=== PATIENT | female | born 1950 | race Caucasian/White ===

== ENCOUNTER 2024-09-16 10:01 | Outpatient (CLI) | payer MEDICARE, SELFPAY ==
--- OUTSIDE RECORDS SUMMARY | 2024-09-16 10:12 | XMS_ITS ---
Author Name Auto Generated, Auto Generated Organization [facility] Address [address] [place] [address] Phone [phone] Care Team Providers Care Manager Parking Name Role Phone Dominic Thomas Unavailable [phone] Michael Rosa Unavailable Functional Status No Results Mental Status No Results Allergies and Intolerances Name Onset Date Reaction Severity Valium (Allergy) TueNov 05 18:09:00 EDT 2022 Antihistamine (Allergy) TueNov 05 18:09:00 EDT 2022 ibuprofen (Allergy) TueNov 05 18:09:00 EDT 2022 barium sulfate (Allergy) TueNov 05 18:09:00 EDT 2022 aspirin (Allergy) TueNov 05 18:09:00 EDT 2022 Encounters Program Name Primary Diagnosis Admission Date/Time Dis charge Date/Time null Alzheimer's disease, unspecified TueFeb 23 19:00:00 EST 2022 Medications Medication Directions Start Date End Date lactulose 10 gram/15 mL (15 mL) oral solution 30 Milliliter Oral PRN 1 Time Daily Indication: constipation if no BM within 72 hrs Haley Apr 14 00:00:00 EST 2023May 03 00:00:00 EST 2023 magnesium hydroxide 400 mg/5 mL oral suspension 30 Milliliter Oral PRN 1 Time Daily Indication: constipation if no results from lactulose within 2 4hrs, Haley Apr 14 00:00:00 EST 2023May 03 00:00:00 EST 2023 Dulcolax (bisacodyl) 10 mg rectal suppository 1 Suppository Rectal PRN 1 Time Daily Indication: constipation if no results within 12 hrs of mom TueApr 14 00:00:00 EST 2023May 03 00:00:00 EST 2023 Fleet Enema 19 gram-7 gram/118 mL 118 Milliliter Rectal PRN 1 Time Daily Indication: constipation if no results from dulcolax sp within 2 4hrs TueApr 14 00:00:00 EST 2023May 03 00:00:00 EST 2023 acetaminophen 500 mg tablet 1 tablet TABLET Oral PRN Every 6 Hours Indication: pain or fever TueDec 23 00:00:00 ED2022May 03 00:00:00 EST 2023 diclofenac 1 % topical gel 1 unit GEL (G PRAVEENA) Topical PRN 2 Times Daily Indication: may apply 2-3 times a day, for pain TueDec 23 00:00:00 2022May 03 00:00:00 EST 2023 licorice root (Glycyrrhiza glabra) 450 mg capsule 1 tablet CAPSULE Oral 1 Time Daily Indication: 1 tab in am prior to breakfast to help with digestion TueDec 23 00:00:00 ED2022May 03 00:00:00 EST 2023 ketoconazole 2 % shampoo 1 unit SHAMPOO Topical 2 Times Weekly Indication: 1-2 times weekly, leave on hair for 10 minutes and then rinse for dandruff TueDec 15 00:00:00 2022May 03 00:00:00 EST 2023 Preparation H 0.25 %-14 %-74.9 % ointment 1 unit OINTMENT WITH APPLICATOR Rectal PRN 2 Times Daily Indication: for hemorroids TueDec 15 00:00:00 2022May 03 00:00:00 EST 2023 Skin Protectant A and D topical ointment 1 unit OINTMENT (GRAM) Topical PRN 2 Times Daily Indication: to narciso area as needed for irritation TueDec 15 00:00:00 2022May 03 00:00:00 EST 2023 TylenoL 325 mg tablet 1-2 tabs TABLET Or al PRN Every 6 Hours Indication: for pain TueDec 15 00:00:00 ED2022Dec 23 21:51:00 EDT 2022 Tums 200 mg calcium (500 mg) chewable tablet 2 tabs TABLET,CHEWABLE Oral Hour Of Sleep Indication: for gas TueNov 05:00:00 ED2022May 03 00:00:00 EST 2023 multivitamin tablet 1 tablet TABLET Oral 4 Times Weekly Indication: supplement TueNov 05:00:00 EDT 2022May 03 00:00:00 EST 2023 Vitamin D3 50 mcg (2,000 unit) tablet 1 tablet TABLET Oral 1 Time Weekly Indication: supplement TueNov 05:00: ED2022May 03 00:00:00 EST 2023 morphine concentrate 100 mg/5 mL (20 mg/mL) oral solution 0.25ml (5mg) SOLUTION, ORAL Oral PRN Every 2 Hours Indication: for pain or dyspnea, may increase to 0.5ml every 2 hours prn pain or dyspnea for continued symptoms, this med was brought from [place] not [facility] symptom kit TueNov 05:00:00 EDT 2022Dec 27 14:50:00 EDT 2022 haloperidol lactate 2 mg/mL oral concentrate 0.5ml CONCENTRATE, ORAL Oral PRN Every 4 Hours Indication: nausea or vomiting, this med was brought from [place] as their symptom kit not [facility] symptom kit TueNov 05:00:00 EDT 2022Dec 27 14:50:00 EDT 2022 LORazepam 2 mg/mL oral concentrate 0.25ml CONCENTRATE, ORAL Oral PRN Every 6 Hours Indication: anxiety or shortness of air, this was brought from [place] symptom kit, not psychiatric symptom kit TueNov 05:00:00 EDT 2022Dec 27 14:50:00 EDT 2022 Levsin 0.125 mg tablet 1 tab TABLET Oral PRN Every 4 Hours Indication: for secretions TueNov 05:00:00 EDT 2022Dec 27 14:50:00 EDT 2022 Treatment Plan Problems No Known Problems Social History Social History Observation Description Date Smoking Status Never smoked TueFeb 24 00:00 :00 EST 2022 Sex Female Sat Mar 13 00:00 :00 EST 1949 Reason for Referral
[2024-09-16 10:25] LABS: Microscopic, Urine URINE MICROSCOPIC (MICROSCOPIC)
[2024-09-16 10:36] LABS: Appearance,Urine TURBID (Clear); Bilirubin,Urine Negative (Negative); Blood, Urine 1+ (Negative); Color,Urine YELLOW (Yellow); Glucose,Urine (UA) Negative (Negative); Ketones,Urine Negative (Negative); Leukocyte Esterase,Urine Negative (Negative); Nitrate,Urine POSITIVE (Negative); PH,Urine 5.5 (5.0-8.5); Protein,Urine Negative (Negative); Specific Gravity, Urine 1.025 (1.005-1.030); Urobilinogen,Urine 0.2 EU/dl (0.2)
[2024-09-16 10:49] LABS: Bacteria,Urine 4+ /lpf; Calcium Oxalate Crystals,Urine 1+ /lpf; RBC,Urine Occasional #/hpf (0-3); Squamous Epithelial Cell,Urine Occasional #/hpf (0-5)
== END 2024-09-16 23:59 | disposition home or self-care (01) ==
LOC: LAB 10:11
PROVIDERS: PCP Family Medicine Hospice and Palliative Medicine; Visit Provider Family Medicine Hospice and Palliative Medicine
DX: C50.012 Malignant neoplasm of nipple and areola, left female breast (principal); G30.9 Alzheimer's disease, unspecified; F02.80 Dementia in other diseases classified elsewhere, unspecified severity, without behavioral disturbance, psychotic disturbance, mood disturbance, and anxiety; M79.7 Fibromyalgia
CPT/HCPCS: 81001; 87086; 87088; 87186

== ENCOUNTER 2024-09-21 08:36 | Emergency (ER) | payer MEDICARE, SELFPAY ==
[2024-09-21] VITALS (7 sets, daily range): BP systolic 140–190; BP diastolic 74–95; PULSE 78–91; RESP 14–18; TEMP 36.8–37; O2SAT 95–100; BMI 20.7
--- OUTSIDE RECORDS SUMMARY | 2024-09-21 08:38 | XMS_ITS ---
Author Name Auto Generated, Auto Generated Organization [facility] Address [address] [place] [address] Phone [phone] Care Team Providers Care Endocrinology Specialist Name Role Phone Dominic Thomas Unavailable [phone] Michael Rosa Unavailable [phone] Functional Status No Results Mental Status No [...] Topical PRN 2 Times Daily Indication: to anrciso area as needed for irritation TueDec 15 [...] continued symptoms, this med was brought from [place] not [facility] symptom kit TueNov 05:00:00 EDT 2022Dec 27 14:50:00 EDT 2022 haloperidol lactate 2 mg/mL oral concentrate 0.5ml CONCENTRATE, ORAL Oral PRN Every 4 Hours Indication: nausea or vomiting, this med was brought from [place] as their symptom kit not [facility] symptom kit TueNov 05:00:00 EDT 2022Dec 27 14:50:00 EDT 2022 LORazepam 2 mg/mL oral concentrate 0.25ml CONCENTRATE, ORAL Oral PRN Every 6 Hours Indication: anxiety or shortness of air, this was brought from [place] symptom kit, not [facility] symptom kit TueNov 05:00:00 EDT 2022Dec 27 [...]
--- NOTE | 2024-09-21 08:44 | XR_ITS ---
PROCEDURE INFORMATION: Exam: XR Right Femur Exam date and time: 09/21/2024 9:27 AM Age: 74 years old Clinical indication: Injury or trauma; Fall; Blunt trauma; Thigh or upper leg; Right; Additional info: Fall, pain TECHNIQUE: Imaging protocol: Radiologic exam of the right femur. Views: 2 views. COMPARISON: CT ABDOMEN PELVIS WO CON 09/21/2024 9:23 AM FINDINGS: Bones/joints: Osteopenia. No evidence of acute fracture or dislocation. Pelvic osseous metastases demonstrated on concurrent CT abdomen and pelvis not well delineated by radiograph. Soft tissues: Unremarkable. IMPRESSION: Osteopenia. No evidence of acute fracture or dislocation.
--- NOTE | 2024-09-21 08:44 | CT_ITS ---
PROCEDURE INFORMATION: Exam: CT Cervical Spine Without Contrast Exam date and time: 09/21/2024 9:15 AM Age: 74 years old Clinical indication: Injury or trauma; Additional info: Fall, pain. Provided history of breast cancer. TECHNIQUE: Imaging protocol: Computed tomography of the cervical spine without contrast. Radiation optimization: All CT scans at this facility use at least one of these dose optimization techniques: automated exposure control; mA and/or kV adjustment per patient size (includes targeted exams where dose is matched to clinical indication); or iterative reconstruction. COMPARISON: 1. CT CHEST WO CON 09/21/2024 9:[address] HEAD/BRAIN WO CON 09/21/2024 9:13 AM FINDINGS: Bones: Osteopenia. Osseous metastases with innumerable vertebral sclerotic foci and small sclerotic focus in the medial left clavicle. No evidence of acute fracture or malalignment. Multilevel degenerative change with disc space narrowing, facet arthropathy, and uncovertebral hypertrophy. Partial osseous fusion of the C5-C6 vertebral bodies and fusion of the posterior elements on the right. No severe spinal canal or neural foraminal stenosis. Lungs: Lung apices are unremarkable. Vasculature: Carotid calcified atherosclerosis. Soft tissues: Unremarkable. IMPRESSION: No CT evidence of acute cervical spine traumatic injury. Osseous metastases as above.
--- NOTE | 2024-09-21 08:44 | XR_ITS ---
PROCEDURE INFORMATION: Exam: XR Right Ankle Exam date and time: 09/21/2024 9:27 AM Age: 74 years old Clinical indication: Injury or trauma; Fall; Blunt trauma; Ankle; Right; Additional info: Fall, pain TECHNIQUE: Imaging protocol: Radiologic exam of the right ankle. Views: 3 or more views. COMPARISON: No relevant prior studies available. FINDINGS: Bones/joints: Osteopenia. No evidence of acute fracture or dislocation. Soft tissues: Lower calf soft tissue edema. IMPRESSION: No acute osseous abnormality.
--- NOTE | 2024-09-21 08:44 | XR_ITS ---
PROCEDURE INFORMATION: Exam: XR Left Shoulder Exam date and time: 09/21/2024 9:27 AM Age: 74 years old Clinical indication: Injury or trauma; Fall; Blunt trauma (contusions or hematomas); Shoulder; Left TECHNIQUE: Imaging protocol: Radiologic exam of the left shoulder. Views: 2 or more views. COMPARISON: CT CHEST WO CON 09/21/2024 9:21 AM FINDINGS: Bones/joints: No acute fracture or dislocation. Sclerotic/lytic glenoid metastases as seen on same day CT chest. Soft tissues: Unremarkable. IMPRESSION: No acute fracture or dislocation. Sclerotic/lytic glenoid metastases.
--- NOTE | 2024-09-21 08:44 | XR_ITS ---
PROCEDURE INFORMATION: Exam: XR Left Femur Exam date and time: 09/21/2024 9:27 AM Age: 74 years old Clinical indication: Injury or trauma; Fall; Blunt trauma; Thigh or upper leg; Left; Additional info: Fall, pain TECHNIQUE: Imaging protocol: Radiologic exam of the left femur. Views: 2 views. COMPARISON: CT ABDOMEN PELVIS WO CON 09/21/2024 9:23 AM FINDINGS: Bones/joints: Osteopenia. No evidence of acute fracture or dislocation. Osseous metastases demonstrated on concurrent CT abdomen and pelvis not well delineated by radiograph. Soft tissues: Unremarkable. IMPRESSION: Osteopenia. No evidence of acute fracture or dislocation. Osseous metastases demonstrated on concurrent CT abdomen and pelvis not well delineated by radiograph.
--- NOTE | 2024-09-21 08:44 | CT_ITS ---
PROCEDURE INFORMATION: Exam: CT Head Without Contrast Exam date and time: 09/21/2024 9:13 AM Age: 74 years old Clinical indication: Injury or trauma; Additional info: Fall L side pain TECHNIQUE: Imaging protocol: Computed tomography of the head without contrast. Radiation optimization: All CT scans at this facility use at least one of these dose optimization techniques: automated exposure control; mA and/or kV adjustment per patient size (includes targeted exams where dose is matched to clinical indication); or iterative reconstruction. COMPARISON: No relevant prior studies available. FINDINGS: Brain: No acute infarct, hemorrhage, mass, or mass effect. Moderate chronic white matter microvascular ischemic change. Moderate brain parenchymal atrophy with widening of the ventricles and sulci. Cerebral ventricles: See Brain finding. Paranasal sinuses: Clear. Mastoid air cells: Clear. Orbital cavities: Orbits are unremarkable. Sella is unremarkable. Bones: Unremarkable. Soft tissues: Unremarkable. IMPRESSION: 1. No acute intracranial abnormality. 2. Moderate brain parenchymal atrophy with widening of the ventricles and sulci.
--- NOTE | 2024-09-21 08:44 | CT_ITS ---
PROCEDURE INFORMATION: Exam: CT Abdomen And Pelvis Without Contrast Exam date and time: 09/21/2024 9:23 AM Age: 74 years old Clinical indication: Injury or trauma; Additional info: Fall, pain. Provided history of breast cancer. TECHNIQUE: Imaging protocol: Computed tomography of the abdomen and pelvis without contrast. Radiation optimization: All CT scans at this facility use at least one of these dose optimization techniques: automated exposure control; mA and/or kV adjustment per patient size (includes targeted exams where dose is matched to clinical indication); or iterative reconstruction. COMPARISON: CT CHEST WO CON 09/21/2024 9:21 AM FINDINGS: Limitations: Evaluation of visceral organs and vasculature and sensitivity for lymphadenopathy are limited in the absence of intravenous contrast. Diaphragm: Small hiatal hernia. Liver: Few subcentimeter hypodense lesions in the liver, too small to characterize. Gallbladder and biliary ducts: Cholelithiasis. No pericholecystic inflammatory changes. No ductal dilatation. Pancreas: Pancreas is unremarkable. No ductal dilatation. Spleen: No splenomegaly. Adrenal glands: No adrenal mass. Kidneys and ureters: Few small cortical hypodensities in the kidneys, too small to characterize. Questionable indeterminate cortical lesion at the interpolar right kidney versus lobulation. No hydronephrosis. No stones. Stomach and bowel: No evidence of bowel obstruction or acute bowel abnormality. Colonic diverticulosis without evidence of diverticulitis. Appendix: No evidence of appendicitis. Intraperitoneal space: No free air. No significant fluid collection. Vasculature: Scattered calcified aortoiliac atherosclerotic disease. No abdominal aortic aneurysm. Lymph nodes: No enlarged lymph nodes. Urinary bladder: Urinary bladder is unremarkable. Reproductive: Unremarkable as visualized. Bones/joints: No acute fracture identified. Findings compatible with osseous metastatic disease with innumerable sclerotic foci throughout the osseous structures. Right iliac lytic metastasis and partially imaged lytic metastases of the leftward aspect of T6 and left glenoid. Osteopenia. Soft tissues: Status post left mastectomy with fungating left anterior chest wall mass, see CT chest report. IMPRESSION: 1. Osseous metastases as above. 2. Colonic diverticulosis without evidence of diverticulitis. 3. Cholelithiasis. 4. Few small cortical hypodensities in the kidneys, too small to characterize. Questionable indeterminate cortical lesion at the interpolar right kidney versus lobulation. Recommend nonemergent renal ultrasound or comparison to prior imaging if available. 5. Few subcentimeter hypodensities in the liver too small to characterize. 6. Please see separate CT chest report for significant findings above the diaphragm. COMMENTS: Consistent with the [employer]'s Incidental Findings Committee white paper (J Am Jenn Radiol 2018): Any incidental renal lesion less than 1 cm or classified as too small to characterize, or any incidental cystic renal lesion characterized as simple-appearing, is likely benign. No follow-up imaging is recommended for these lesions per consensus recommendations based on imaging criteria.
--- NOTE | 2024-09-21 08:44 | XR_ITS ---
PROCEDURE INFORMATION: Exam: XR Left Ankle Exam date and time: 09/21/2024 9:27 AM Age: 74 years old Clinical indication: Injury or trauma; Fall; Blunt trauma; Ankle; Left; Additional info: Fall, pain TECHNIQUE: Imaging protocol: Radiologic exam of the left ankle. Views: 3 or more views. COMPARISON: No relevant prior studies available. FINDINGS: Bones/joints: Two views of the left foot. Osteopenia. Lateral deviation of the foot on AP view, possibly chronic deformity/positional. No acute fracture identified, although evaluation limited. Soft tissues: Lower calf soft tissue edema. IMPRESSION: Osteopenia. Lateral deviation of the foot on AP view, possibly chronic deformity/positional. No acute fracture identified, although evaluation limited. CT could be obtained as clinically indicated.
--- NOTE | 2024-09-21 08:44 | XR_ITS ---
PROCEDURE INFORMATION: Exam: XR Chest Exam date and time: 09/21/2024 9:27 AM Age: 74 years old Clinical indication: Injury or trauma; Fall; Blunt trauma (contusions or hematomas) TECHNIQUE: Imaging protocol: Radiologic exam of the chest. Views: 1 view. COMPARISON: CT CHEST WO CON 09/21/2024 9:21 AM FINDINGS: Lungs: Hypoaeration of the lung bases. Mild bibasilar opacities. There is a 4.5 cm density over the left lower chest which corresponds with fungating chest wall mass as demonstrated on same day CT chest. Pleural spaces: No pleural effusion. No pneumothorax. Heart/Mediastinum: Cardiomediastinal silhouette is normal. Bones/joints: Left glenoid sclerotic/lytic metastasis. No acute fracture identified. IMPRESSION: 1. Mild bibasilar opacities. There is a 4.5 cm density over the left lower chest which corresponds with fungating chest wall mass as demonstrated on same day CT chest. 2. Left glenoid sclerotic/lytic metastasis. No acute fracture identified.
--- NOTE | 2024-09-21 08:44 | CT_ITS ---
PROCEDURE INFORMATION: Exam: CT Chest Without Contrast; Diagnostic Exam date and time: 09/21/2024 9:21 AM Age: 74 years old Clinical indication: Injury or trauma; Additional info: Fall, L sided pain. Provided history of breast cancer. TECHNIQUE: Imaging protocol: Diagnostic computed tomography of the chest without contrast. Radiation optimization: All CT scans at this facility use at least one of these dose optimization techniques: automated exposure control; mA and/or kV adjustment per patient size (includes targeted exams where dose is matched to clinical indication); or iterative reconstruction. COMPARISON: CT CHEST WO CON 09/21/2024 9:21 AM FINDINGS: Lungs: Multiple nodules in the right middle lobe, largest measuring 1.1 cm. Subpleural right upper lobe 5 mm nodule. Left lower lobe 1 cm subpleural nodular opacity and ovoid medial LLL nodule measuring up to 6 mm. Non-specific ground-glass attenuation in the lower lungs may reflect atelectasis. Pleural spaces: No pneumothorax. No pleural effusion. Heart: Heart size is normal. No pericardial effusion. Lymph nodes: No enlarged mediastinal or hilar lymph nodes. Prominent upper normal left axillary and supraclavicular lymph nodes measuring up to 9 mm, short axis dimension. Vasculature: Limited evaluation without contrast. Mild calcified aortic atherosclerosis. No thoracic aortic aneurysm. Main pulmonary artery is normal caliber. Diaphragm: Small hiatal hernia. Bones/joints: Findings compatible with osseous metastases with innumerable sclerotic foci throughout the osseous structures, most extensively involving the vertebral bodies, sternum, and left scapula. Lytic lesion of the leftward aspect of T6. Lytic lesion of the left glenoid. No definite acute fracture identified. Nondisplaced rib fracture difficult to entirely exclude given osteopenia and metastases. Multilevel degenerative changes of the included spine. Osteopenia. Soft tissues: Status post left mastectomy. Irregular fungating soft tissue mass at the left anterior chest wall measuring 6.4 x 3.5 x 3.5 cm (TxAPxCC). IMPRESSION: 1. Status post left mastectomy. Irregular fungating soft tissue mass at the left anterior chest wall measuring 6.4 x 3.5 x 3.5 cm concerning for recurrent disease. 2. Bilateral pulmonary nodules as above, possible metastatic disease. 3. Diffuse osseous metastases as above. 4. Prominent upper normal left axillary and supraclavicular lymph nodes. 5. Other chronic and incidental findings as above. 6. Please see separate CT abdomen and pelvis report for findings below the diaphragm. The findings were verbally communicated via telephone conference with NATY CASSIDY at 10:54 AM EDT on 09/21/2024. The findings were acknowledged and understood.
--- NOTE | 2024-09-21 08:44 | XR_ITS ---
PROCEDURE INFORMATION: Exam: XR Pelvis Exam date and time: 09/21/2024 9:27 AM Age: 74 years old Clinical indication: Injury or trauma; Fall; Blunt trauma (contusions or hematomas); Bilateral; Pelvic region TECHNIQUE: Imaging protocol: Radiologic exam of the pelvis. Views: 1 or 2 view. COMPARISON: CT ABDOMEN PELVIS WO CON 09/21/2024 9:23 AM FINDINGS: Bones/joints: Osteopenia. No evidence of acute fracture or dislocation. Osseous metastases demonstrated on concurrent CT abdomen and pelvis not well delineated by radiograph. Soft tissues: Unremarkable. IMPRESSION: Osteopenia. No evidence of acute fracture or dislocation. Osseous metastases demonstrated on concurrent CT abdomen and pelvis not well delineated by radiograph.
--- NOTE | 2024-09-21 08:48 | [facility].EDGENADL ---
Discharge Plan Referrals Follow up/Referrals: Provider,Referral, MD [Referring, Medical] - See instructions Activity Restrictions/Add. Instructions Additional Instructions/Restrictions: At this time it was felt you are safe to be discharged home. If new or worsening symptoms please do not hesitate to return the emergency department. As discussed your known cancer has spread to multiple bones in your back, hips, spine, likely in your lungs. You will benefit from hospice evaluation to help your symptoms as your pain will likely progress. I am sorry that we found this today and wish you well in the rest of your cancer journey. Clinical Impressions Clinical Impression: Fall, Metastatic disease Print Language Print Language: Latvian Discharge ED Provider: Bashir Valenzeula General Adult HPI General Chief complaint: Fall Stated complaint: AMS, fell out of bed, recent UTI Time Seen by Provider: 09/21/24 08:40 History of Present Illness HPI narrative: Patient is a 74-year-old female with past medical history of breast cancer not undergoing current therapy that is eroding through her left chest wall, not on anticoagulants, [facility] [place] DNR/DNI who presents emergency department for evaluation of traumatic injury sustained in a fall. Patient rolled out of bed inadvertently onto her left side striking her shoulder left chest wall and head. No loss of consciousness. She is complaining of pain in those areas as well as her bilateral ankles and bilateral hips. No other acute complaints at this time. Please note that above description of symptoms, in this electronic medical record under categorization of recalled from ER triage doctor by RN are reflective of an initial nursing assessment, however, is not reflective of my full history and physical exam that was personally taken and clarified. Consequentially, this preceding description of symptoms, which may include the patient's categorized chief complaint in the EMR, do not reflect my personal clinical impression, and the ultimate description of history of present illness and patient stated complaints should be deferred to this section of the note. Unless stated otherwise or congruent with this section of the note, additional signs, symptoms, or incongruence should be interpreted as inaccurate with my clinical impression. Related Data Allergies Allergy/AdvReac Type Severity Reaction Status Date / Time No Known Drug Allergies Allergy Verified 09/21/24 09:18 [facility] Disclaimer: The information contained in this section may have been updated after the patient was seen, as this information can be updated by other users. Social History Smoking Status: Never smoker alcohol intake: never current occupational status: other Travel in the last 8 weeks?: None ROS Obtained: Yes Systems reviewed as appropriate & no additional complaints except as documented Physical Exam General General appearance: alert and in no apparent distress Head Head exam: atraumatic and normocephalic Eye Eye exam: Present PERRL and EOMI ENT ENT exam: Present mucous membranes moist Neck Neck exam: Present tenderness (Midline); Absent normal inspection (Kyphotic sitting up in bed) Chest Chest inspection: Present normal inspection and symmetric chest wall rise Respiratory Respiratory exam: Present normal lung sounds bilaterally; Absent respiratory distress Cardiovascular Cardiovascular exam: Present regular rate and normal rhythm Abdominal Exam Abdominal exam: Present soft; Absent tenderness Extremities Exam Extremities exam: Present other (Tenderness over the left shoulder, bilateral ankles, bilateral hips) Back Exam Back exam: Present other (Tenderness over the cervical spine, no tenderness over the thoracolumbar area) Neurological Exam Neurological exam: Present alert Psychiatric Psychiatric exam: Present normal affect Skin Skin exam: Present warm and dry Medical Decision Making Medical Records Screening: Per USPSTF and CDC recommendations, given the prevalence of disease in our region, it is our hospital?s policy to screen for HIV and viral Hepatitis for all patients aged 18 and over and those with ongoing risk factors. Mack Inquiry Pt receiving controlled substance: No Vital Signs: 09/21/24 08:37 09/21/24 08:45 09/21/24 08:45 Temperature 98.3 F 98.3 F Temperature Source Oral Oral Pulse Rate 83 86 Pulse Rate [Right] 86 Respiratory Rate 18 14 14 Blood Pressure 173/79 H 173/79 H Blood Pressure [Right Arm] 173/79 H Blood Pressure Mean 93 Blood Pressure Mean [Right Arm] 110 Blood Pressure Source Automatic Cuff Blood Pressure Source [Right Arm] Automatic Cuff Blood Pressure Position Supine Blood Pressure Position [Right Arm] Supine 02 Sat by Pulse Oximetry 99 100 100 Oxygen Delivery Method Room Air Room Air 09/21/24 10:17 09/21/24 10:30 09/21/24 11:00 Temperature Temperature Source Pulse Rate 81 91 H 79 Pulse Rate [Right] Respiratory Rate 18 18 18 Blood Pressure 165/82 H 169/95 H 147/83 H Blood Pressure [Right Arm] Blood Pressure Mean 109 114 104 Blood Pressure Mean [Right Arm] Blood Pressure Source Blood Pressure Source [Right Arm] Blood Pressure Position Blood Pressure Position [Right Arm] 02 Sat by Pulse Oximetry 99 95 95 Oxygen Delivery Method 09/21/24 11:30 Temperature Temperature Source Pulse Rate 78 Pulse Rate [Right] Respiratory Rate 18 Blood Pressure 190/89 H Blood Pressure [Right Arm] Blood Pressure Mean 109 Blood Pressure Mean [Right Arm] Blood Pressure Source Blood Pressure Source [Right Arm] Blood Pressure Position Blood Pressure Position [Right Arm] 02 Sat by Pulse Oximetry 98 Oxygen Delivery Method Lab Data Lab Results 09/21/24 08:35: WBC 8.5, RBC 4.26, Hgb 12.9, Hct 39.7, MCV 93.2, MCH 30.3, MCHC 32.5, RDW 12.8, Plt Count 254, MPV 9.9, Neut % (Auto) 81.8 H, Lymph % (Auto) 11.0, [place] % (Auto) 6.7, Eos % (Auto) 0.1, Baso % (Auto) 0.2, Neut # (Auto) 7.0, Lymph # (Auto) 0.9, [place] # (Auto) 0.6, Eos # (Auto) 0.0, Baso # (Auto) 0.0, PT 11.0, INR 0.99, APTT 22.8, Sodium 139, Potassium 4.0, Chloride 103, Carbon Dioxide 27, Anion Gap 13.0, BUN 23 H, Creatinine 0.90, Estimated GFR 61, Est GFR ( Amer) 74, Glucose 111 H, Calcium 9.6, Total Bilirubin 0.4, AST 35, ALT 15, Alkaline Phosphatase 142 H, Total Protein 7.5, Albumin 4.3, Globulin 3.2, Albumin/Globulin Ratio 1.3 09/21/24 11:31: Urine Color Yellow, Urine Appearance Clear, Urine pH 6.5, Ur Specific [place] 1.010, Urine Protein Negative, Urine Glucose (UA) Negative, Urine Ketones Negative, Urine Blood Trace-i, Urine Nitrate Positive A, Urine Bilirubin Negative, Urine Urobilinogen 0.2, Ur Leukocyte Esterase Negative, Urine WBC Occasional, Ur Squamous Epith Cells Occasional, Urine Bacteria 1+ 09/21/24 08:35 09/21/24 08:35 Orders (Tests/Meds): ED MEDICATIONS Generic Name Dose Route Start Last Admin Trade Name Freq PRN Reason Stop Dose Admin Sodium Chloride 10 ml 09/21/24 08:44 Sodium Chloride 0.9% 10ml Flush Syringe IV 10/21/24 08:43 NEEDED PRN Maintain IV Site Discontinued Medications Generic Name Dose Route Start Last Admin Trade Name Jeremias PRN Reason Stop Dose Admin Acetaminophen 1,000 mg 09/21/24 08:50 09/21/24 09:59 Acetaminophen 1,000mg/100ml Vial IV 09/21/24 08:51 1,000 mg ONCE ONE Administration ORDERS Category Date Time Status CT abdomen pelvis wo con Stat Cat Scan 09/21/24 08:[address] cervical spine wo con Stat Cat Scan 09/21/24 08:[address] chest wo con Stat Cat Scan 09/21/24 08:[address] head/brain wo con Stat Cat Scan 09/21/24 08:44 Completed Ankle XR - Left minimum 3 Views [XR ankle LT min 3V] Exams 09/21/24 08:44 Completed Stat Ankle XR -Right minimum 3 Views [XR ankle RT min 3V] Exams 09/21/24 08:44 Completed Stat Femur XR left 2 views [XR femur LT 2V] Stat Exams 09/21/24 08:44 Completed Femur XR right 2 views [XR femur RT 2V] Stat Exams 09/21/24 08:44 Completed Shoulder XR left minimum 2 views [XR shoulder LT min 2V Exams 09/21/24 08:44 Completed ] Stat XR chest portable Stat Exams 09/21/24 08:44 Completed XR pelvis 1-2V Stat Exams 09/21/24 08:44 Completed Activated Partial Thrombo Time Stat Lab 09/21/24 08:35 Completed Complete Blood Count Auto Diff Stat Lab 09/21/24 08:35 Completed Comprehensive Metabolic Panel Stat Lab 09/21/24 08:35 Completed Prothrombin Time INR Stat Lab 09/21/24 08:35 Completed UA [Urinalysis and Microscopic] Stat Lab 09/21/24 11:31 Completed Urine Culture Stat Micro 09/21/24 11:31 Received Medical Decision Narrative: In summary patient is 74-year-old female past medical history Kend[place] above who presents emergency department for evaluation traumatic injury sustained in a fall. Patient is alert and oriented with the exception of the year. She is currently being treated for urinary tract infection reportedly, also has a history of known left breast cancer that is eroding through her chest wall. Trauma workup will be conducted with plain films of the chest, pelvis, bilateral femurs, bilateral ankles, left shoulder. CT imaging of the head, neck, thorax, abdomen pelvis will be obtained. Hematologic labs will be obtained. Initial inventions include IV Tylenol. Initial workup reviewed by me no significant leukocytosis or transfusable anemia no critical electrolyte abnormality or LANG. Urinalysis interpreted by me and consistent with nitrate positive infection. I had interactive discussion with radiology regarding findings of CT imaging she has diffuse metastasis from her known breast cancer throughout her chest and abdomen no acute traumatic findings, diffuse osteopenia which does limit diagnostic evaluation somewhat. However given that patient has preserved range of motion in her ankles and flexor mechanism is intact against gravity I significantly doubt hip fracture or ankle fracture. Patient underwent trial with walker at bedside which is her baseline with successful is appropriate for outpatient management at this time as she is known of this cancer but was unknown the extent of it and does not wish to pursue any chemotherapy any radiation or any intervention at this time and will contact hospice next week at [place]. Critical Care Critical Care Time Critical Care Time: No
[2024-09-21 08:57] LABS: Chloride 103 mmol/L (98-107)
[2024-09-21 08:58] LABS: Albumin Level 4.3 g/dl (3.5-5.0); Hematocrit 39.7 % (37.0-47.0); Hemoglobin 12.9 g/dL (12.2-16.2); Immature Granulocytes % 0.2 %; Mean Corpuscular HGB Conc 32.5 g/dL (31.8-35.4); Mean Corpuscular Hemoglobin 30.3 pg (27.0-31.2); Mean Corpuscular Volume 93.2 fl (81-99); Nucleated Red Blood Cells % 0 %; Platelet Count 254 K/mm3 (142-424); Potassium 4.0 mmoL/L (3.5-5.1); Red Blood Count 4.26 M/mm3 (4.20-5.40); Red Cell Distribution Width-SD 44.3 fL; Sodium 139 mmol/L (136-145); White Blood Count 8.5 K/mm3 (4.8-10.8)
[2024-09-21 09:00] LABS: Alanine Aminotransferase 15 U/L (12-78); Albumin/Globulin Ratio 1.3 (1.1-1.8); Alkaline Phosphatase 142 U/L (38-126); Anion Gap 13.0 mEq/L (5-15); Aspartate Amino Transferase 35 U/L (14-36); Bilirubin,Total 0.4 mg/dl (0.2-1.3); Blood Urea Nitrogen 23 mg/dl (7-17); Carbon Dioxide 27 mmol/L (22.0-30.0); Creatinine,Serum 0.90 mg/dl (0.52-1.04); Estimated Glomerular Filt Rate 61 ml/min (>60); GFR (African American) 74 ML/MIN (>60); Globulin 3.2 g/dL (1.3-3.2); Total Protein,Serum 7.5 g/dl (6.3-8.2)
[2024-09-21 09:01] LABS: Calcium 9.6 mg/dl (8.4-10.2); Glucose 111 mg/dl (74-100)
--- NOTE | 2024-09-21 09:15 | PC.NURSE ---
pt to ct scan via stretcher
[2024-09-21 09:27] LABS: INR 0.99 (0.9-1.1); Prothrombin Time 11.0 seconds (10.1-12.5)
[2024-09-21 09:38] LABS: Activated Partial Thrombo Time 22.8 seconds (22.8-30.6)
[2024-09-21] MEDS: ACETAMINOPHEN 1,000MG/100ML VIAL 1000 MG IV (09:59)
[2024-09-21 11:35] LABS: Microscopic, Urine URINE MICROSCOPIC (MICROSCOPIC)
[2024-09-21 11:37] LABS: Bilirubin,Urine Negative (Negative); Color,Urine YELLOW (Yellow); Glucose,Urine (UA) Negative (Negative); Ketones,Urine Negative (Negative); Leukocyte Esterase,Urine Negative (Negative); PH,Urine 6.5 (5.0-8.5); Protein,Urine Negative (Negative); Specific Gravity, Urine 1.010 (1.005-1.030); Urobilinogen,Urine 0.2 EU/dl (0.2)
[2024-09-21 11:46] LABS: Bacteria,Urine 1+ /lpf; Squamous Epithelial Cell,Urine Occasional #/hpf (0-5); WBC,Urine Occasional #/hpf (0-3)
--- NOTE | 2024-09-22 13:21 | PC.NURSE ---
I attempted to call [facility] and was unable to reach them via telephone to relay prelim urine culture results. [facility]
--- NOTE | 2024-09-23 12:21 | PC.NURSE ---
I attempted to call [facility] to relay the pts final urine culture and inform them of the antibiotic. I was told that everyone is in the dining room and they would return my call when a nurse was available.
--- NOTE | 2024-09-23 16:26 | PC.NURSE ---
Yissel from [place] notified of pts positive urine culture results and cefdinir.
== END 2024-09-21 13:23 | disposition home or self-care (01) ==
PROVIDERS: Emergency Provider Emergency Medicine; PCP Family Medicine Hospice and Palliative Medicine
DX: R07.89 Other chest pain (principal); M25.551 Pain in right hip; M25.552 Pain in left hip; C50.912 Malignant neoplasm of unspecified site of left female breast; N39.0 Urinary tract infection, site not specified; W06.XXXA Fall from bed, initial encounter
CPT/HCPCS: 70450; 71045; 71250; 72125; 72170; 73030; 73552; 73610; 74176; 80053; 81001; 85025; 85610; 85730; 87086; 87088; 87186; 96374; 99285; J0131